=== PATIENT | male | born 1975 | race Hispanic/Latino ===

== ENCOUNTER 2020-08-07 23:25 | Emergency (ER) | payer OTHER ==
[2020-08-08] MEDS ORDERED: ONDANSETRON ODT 4 MG TAB ONE (02:39)
== END 2020-08-08 03:47 | disposition home or self-care (01) ==
LOC: EDH 23:25
DX: S82.832A Other fracture of upper and lower end of left fibula, initial encounter for closed fracture (principal); Y93.39 Activity, other involving climbing, rappelling and jumping off; Y93.89 Activity, other specified; Y92.89 Other specified places as the place of occurrence of the external cause; Y99.8 Other external cause status
CPT/HCPCS: 73590; 73610